=== PATIENT | male | born 1995 | race Hispanic/Latino ===

== ENCOUNTER 2016-09-10 02:56 | Emergency (ER) | payer SELFPAY ==
--- NOTE | 2016-09-10 03:53 | ED.PDOC ---
History of Present Illness - General Chief Complaint: Cardiovascular Problem Stated Complaint: heart palpitations, twitches in chest Time Seen by Provider: 09/10/16 03:30 Source: patient Exam Limitations: no limitations - History of Present Illness Initial Comments: Patient presents with palpitations and generalized pain. The palpatations have occurred before and in fact have been going on for some time ( months). He had a similar workup one year ago that did not show any cardiac problems. He says that once he starts having palpitations he starts thinking about them and worrying about them and then they get worse. He thinks there might be an anxiety component. He says that he has tingling pain all over his body especially the legs and neck. He denies chest pain nor shortness of breath. 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 No diaphoresis. No first degree family members with cardiac problems. No other complaints. Timing/Duration: changing over time Severity: mild Improving Factors: nothing Worsening Factors: nothing Associated Symptoms: denies symptoms Allergies/Adverse Reactions: Allergies NO KNOWN ALLERGY Allergy (Verified 09/10/16 03:09) Review of Systems - Review of Systems Constitutional: States: no symptoms reported EENTM: States: no symptoms reported Respiratory: States: no symptoms reported Cardiology: States: see HPI Gastrointestinal/Abdominal: States: no symptoms reported Genitourinary: States: no symptoms reported Musculoskeletal: States: no symptoms reported Skin: States: no symptoms reported Neurological: States: see HPI Endocrine: States: no symptoms reported Hematologic/Lymphatic: States: no symptoms reported Past Medical History (General) - Patient Medical History Hx Seizures: No Hx Stroke: No Hx Dementia: No Hx Asthma: No Hx of COPD: No Hx Cardiac Disorders: No Hx Congestive Heart Failure: No Hx Pacemaker: No Hx Hypertension: No Hx Thyroid Disease: No Hx Diabetes: No Hx Gastroesophageal Reflux: No Hx Renal Disease: No Hx Cancer: No Hx of HIV: No Hx Hepatitis C: No Hx MRSA: No - Vaccination History Hx Tetanus, Diphtheria Vaccination: Yes Hx Influenza Vaccination: No Hx Pneumococcal Vaccination: No - Social History Hx Tobacco Use: No Hx Chewing Tobacco Use: No Hx Alcohol Use: Yes - occ Hx Physical Abuse: No Hx Emotional Abuse: No Hx Suspected Abuse: No - Female History Patient : No Family Medical History - Family History Mother Family History: Unknown Hx Cardiac Disease: Yes Physical Exam - Physical Exam General Appearance: Alert Respiratory: lungs clear Cardiovascular/Chest: normal peripheral pulses, regular rate, rhythm Gastrointestinal/Abdominal: normal bowel sounds, non tender, soft Extremity: non-tender, normal inspection, no pedal edema 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 No LBBB. Departure - Departure Clinical Impression: Palpitations Disposition: Discharge to Home or Self Care Condition: Good Departure Forms: ED Discharge - Pt. Copy, Patient Portal Self Enrollment Instructions: DI for Palpitations Diet: resume usual diet Activity: increase activity as tolerated Additional Instructions: Follow up with a primary physician. Clinics available in town: [facility] [phone] [facility] [phone], they also take walk-ins on Wednesdays [facility] [phone] [facility] [phone] Also get a referral to a acid tank cleaner and neurologist Dr. Sawant, Field Support Representative, is from [place], he comes to [place] once a month [phone] Dr. Arzola, Neurologist, also from [place] [phone]
[2016-09-10 04:08] VITALS: BP 131/72; TEMP 97.2; O2SAT 96
== END 2016-09-10 04:10 | disposition home or self-care (01) ==
LOC: ER 02:56
DX: R00.2 Palpitations (principal); Z82.49 Family history of ischemic heart disease and other diseases of the circulatory system

== ENCOUNTER → 2016-09-16 | Outpatient (CLI) | payer SELFPAY | END | disposition home or self-care (01) | LOC: LAB.O 09:35 | PROVIDERS: ATTEND Family Medicine | DX: R29.898 Other symptoms and signs involving the musculoskeletal system (principal) ==

== ENCOUNTER 2016-10-21 17:02 | Emergency (ER) | payer SELFPAY ==
[2016-10-21 17:17] VITALS: TEMP 99.2
[2016-10-21] MEDS ORDERED: SODIUM CHLORIDE 0.9% 1000ML 1,000 ML IVS ONE (17:27)
[2016-10-21] MEDS ORDERED: ONDANSETRON ODT 8 MG TAB SL ONE (17:27)
--- NOTE | 2016-10-21 18:25 | ED.PDOC ---
History of Present Illness - General Chief Complaint: GI Problem Stated Complaint: light headed, feels dehydrated Time Seen by Provider: 10/21/16 17:02 Source: patient Exam Limitations: no limitations - History of Present Illness Initial Comments: The patient is a 21-year-old male presenting to the emergency room secondary tomild intestinal upset starting this morning. He threw up 2 times. No blood noted by. No real abdominal pain. No fevers. Poor appetite today. No sore throat. No runny nose. No headache. Just some mild stomach upset. Severity: mild Improving Factors: nothing Worsening Factors: eating Associated Symptoms: loss of appetite, malaise, nausea/vomiting Allergies/Adverse Reactions: Allergies NO KNOWN ALLERGY Allergy (Verified 10/21/16 17:16) Home Medications: Ambulatory Orders Famotidine 20 mg PO DAILY #30 tab 10/21/16 Ondansetron [Zofran Odt] 4 mg PO Q4H PRN #10 tab 10/21/16 Review of Systems - Review of Systems Constitutional: States: malaise EENTM: States: no symptoms reported Respiratory: States: no symptoms reported Cardiology: States: no symptoms reported Gastrointestinal/Abdominal: States: nausea, vomiting. Denies: constipation, diarrhea Genitourinary: States: no symptoms reported Musculoskeletal: States: no symptoms reported Skin: States: no symptoms reported Neurological: States: other - very mild dizziness Endocrine: States: no symptoms reported - except for a dry mouth All other Systems: No Change from Baseline Past Medical History (General) - Patient Medical History Hx Seizures: No Hx Stroke: No Hx Dementia: No Hx Asthma: No Hx of COPD: No Hx Cardiac Disorders: No Hx Congestive Heart Failure: No Hx Pacemaker: No Hx Hypertension: No Hx Thyroid Disease: No Hx Diabetes: No Hx Gastroesophageal Reflux: No Hx Renal Disease: No Hx Cancer: No Hx of HIV: No Hx Hepatitis C: No Hx MRSA: No Surgical History: other - Vaccination History Hx Tetanus, Diphtheria Vaccination: Yes Hx Influenza Vaccination: No Hx Pneumococcal Vaccination: No Immunizations Up to Date: Yes - Social History Hx Tobacco Use: No Hx Chewing Tobacco Use: No Hx Alcohol Use: Yes - occ Hx Substance Use: No Hx Substance Use Treatment: No Hx Depression: No Hx Physical Abuse: No Hx Emotional Abuse: No Hx Suspected Abuse: No - Activities of Daily Living Hospice Agency (if applicable):: None - Female History Patient is a Female of Child Bearing Age (10 -59 yrs old): No Patient : No Family Medical History - Family History Mother Family History: Unknown Hx Cardiac Disease: Yes Physical Exam - Physical Exam General Appearance: Alert, Comfortable, No apparent distress Eye Exam: bilateral normal Ears, Nose, Throat: hearing grossly normal, normal ENT inspection, normal pharynx Neck: non-tender, full range of motion, supple Respiratory: chest non-tender, lungs clear, normal breath sounds, no respiratory distress, no accessory muscle use Cardiovascular/Chest: normal peripheral pulses, regular rate, rhythm, no edema Peripheral Pulses: radial,right: 2+, radial,left: 2+, dorsalis pedis,right: 2+, dorsalis pedis,left: 2+ Gastrointestinal/Abdominal: normal bowel sounds, non tender, soft, no pulsatile mass Rectal Exam: deferred Back Exam: normal inspection, no CVA tenderness, no vertebral tenderness Extremity: normal range of motion, non-tender, normal inspection, no pedal edema , normal capillary refill 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 He has received a liter of IV fluids and a dose of Zofran. He will be written for a prescription for Zofran in order to be able to keep himself hydrated. ER warnings were given for any significant worsening. If the patient is still having some symptoms by Wednesday then he should follow-up with his primary care doctor. - Results/Orders Results/Orders: Laboratory Tests 10/21/16 10/21/16 17:27 17:35 WBC 9.5 RBC 5.61 Hgb 16.5 Hct 48.3 MCV 86.1 MCH 29.5 MCHC 34.3 RDW 13.4 Plt Count 208 MPV 7.8 Absolute Neuts (auto) 7.90 H Absolute Lymphs (auto) 1.20 Absolute Monos (auto) 0.40 Absolute Eos (auto) 0.00 Absolute Basos (auto) 0.00 Neutrophils % 82.5 H Lymphocytes % 13.0 L Monocytes % 4.0 Eosinophils % 0.1 L Basophils % 0.4 Sodium 139 Potassium 4.1 Chloride 105 Carbon Dioxide 26 Anion Gap 12.1 BUN 11 Creatinine 0.98 BUN/Creatinine Ratio 11.2 Random Glucose 99 Serum Osmolality 277.0 Calcium 8.9 Total Bilirubin 0.7 AST 22 ALT 24 Alkaline Phosphatase 51 L Serum Total Protein 7.4 Albumin 5.2 Globulin 2.2 L Albumin/Globulin Ratio 2.4 H Departure - Departure Clinical Impression: Gastroenteritis Disposition: Discharge to Home or Self Care Condition: Fair Departure Forms: ED Discharge - Pt. Copy, Patient Portal Self Enrollment Instructions: DI for Viral Gastroenteritis -- Adult Diet: bland diet Activity: increase activity as tolerated Referrals: Slim Arias MD [Primary Care Provider] - 1-5 Days Prescriptions: Famotidine 20 mg PO DAILY #30 tab Ondansetron [Zofran Odt] 4 mg PO Q4H PRN #10 tab PRN Reason: Vomiting Home Medications: Ambulatory Orders Famotidine 20 mg PO DAILY #30 tab 10/21/16 Ondansetron [Zofran Odt] 4 mg PO Q4H PRN #10 tab 10/21/16 Additional Instructions: the patient is a 21-year-old male presenting to the emergency room secondary to what appears to be a mild gastroenteritis. He has received a liter of IV fluids and a dose of Zofran. He will be written for a prescription for Zofran in order to be able to keep himself hydrated. ER warnings were given for any significant worsening. If the patient is still having some symptoms by Wednesday then he should follow-up with his primary care doctor.
[2016-10-21 18:49] VITALS: BP 139/61; O2SAT 98
== END 2016-10-21 18:49 | disposition home or self-care (01) ==
LOC: ER 17:02
DX: K52.9 Noninfective gastroenteritis and colitis, unspecified (principal)
CPT/HCPCS: 80053; 85025; J7030

== ENCOUNTER 2017-02-21 15:33 | Emergency (ER) | payer SELFPAY ==
[2017-02-21 15:48] VITALS: TEMP 98
[2017-02-21] MEDS ORDERED: ALPRAZolam 0.25 MG TAB PO ONE (15:54)
[2017-02-21] MEDS ORDERED: ASPIRIN (CHEWABLE) 81 MG TAB PO ONE (15:54)
--- NOTE | 2017-02-21 15:57 | ED.PDOC ---
History of Present Illness - General Chief Complaint: Cardiovascular Problem Stated Complaint: chest pain and anxiety Time Seen by Provider: 02/21/17 15:42 Source: patient, RN notes reviewed, Vital Signs reviewed, old records Exam Limitations: no limitations - History of Present Illness Initial Comments: Patient comes in with c/o of chest pain that started ~20 minutes ago. Pain is along the L side of his sternum and is sharp in nature. No SOB, diaphoresis or nausea. Very anxious. Reports he has had these pains before but have never lasted this long. 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 He has been here several times with palpitations and anxiety. Timing/Duration: 1/2 hour Severity/Quality: mild, sharp Location: substernal Chest Pain Radiation: no radiation Activities at Onset: other - @ work Prior Chest Pain/Cardiac Workup: non-cardiac Improving Factors: nothing Worsening Factors: nothing Nitro Today/Relief: no nitro taken today Aspirin Treatment Today: 81 mg x 4, provided by ED Associated Symptoms: denies symptoms Allergies/Adverse Reactions: Allergies NO KNOWN ALLERGY Allergy (Verified 02/21/17 15:48) Home Medications: Ambulatory Orders Famotidine 20 mg PO DAILY #30 tab 10/21/16 Ondansetron [Zofran Odt] 4 mg PO Q4H PRN #10 tab 10/21/16 Review of Systems - Review of Systems Constitutional: States: no symptoms reported Respiratory: States: no symptoms reported. Denies: short of breath Cardiology: States: see HPI, chest pain. Denies: palpitations, syncope Gastrointestinal/Abdominal: States: no symptoms reported Musculoskeletal: States: no symptoms reported Skin: States: no symptoms reported Neurological: States: see HPI, anxiety All other Systems: No Change from Baseline Past Medical History (General) - Patient Medical History Hx Seizures: No Hx Stroke: No Hx Dementia: No Hx Asthma: No Hx of COPD: No Hx Cardiac Disorders: No Hx Congestive Heart Failure: No Hx Pacemaker: No Hx Hypertension: No Hx Thyroid Disease: No Hx Diabetes: No Hx Gastroesophageal Reflux: No Hx Renal Disease: No Hx Cancer: No Hx of HIV: No Hx Hepatitis C: No Hx MRSA: No Surgical History: no surgical history - Vaccination History Hx Tetanus, Diphtheria Vaccination: Yes Hx Influenza Vaccination: No Hx Pneumococcal Vaccination: No - Social History Hx Tobacco Use: No Hx Chewing Tobacco Use: No Hx Alcohol Use: Yes - occ Hx Substance Use: No Hx Substance Use Treatment: No Hx Depression: No Hx Physical Abuse: No Hx Emotional Abuse: No Hx Suspected Abuse: No - Female History Patient : No Family Medical History - Family History Mother Family History: Unknown Hx Cardiac Disease: Yes Physical Exam - Physical Exam General Appearance: Anxious, No apparent distress, Well Developed, Well Groomed , Well Hydrated, Well Nourished Neck: full range of motion, supple, normal inspection Respiratory: chest non-tender, lungs clear, normal breath sounds, no respiratory distress, no accessory muscle use Cardiovascular/Chest: normal peripheral pulses, regular rate, rhythm, no gallop , no murmur Peripheral Pulses: radial,right: 2+, radial,left: 2+, posterior tibialis,right: 2+, posterior tibialis,left: 2+ Extremity: normal range of motion, non-tender, normal inspection Neurologic: no motor/sensory deficits, alert, normal mood/affect Skin Exam: normal color, warm/dry Comments: Vital Signs 02/21/17 02/21/17 15:36 15:49 Temperature 98.0 F Pulse Rate [ 88 77 pulse ox] Respiratory 20 Rate Blood Pressure 145/78 [Left Arm] O2 Sat by Pulse 97 Oximetry Progress - Progress Progress: 02/21/17 17:22 Patient reports he is feeling better. Discussed chest pain and anxiety. The 5 days of the week that he does crossfit he does not get anxiety or chest pain. Those symptoms tend to occur on the days he does not exercise. Discussed yoga and meditation. Also discussed seeing his PCP, Dr. Arias, and discussing treatment for his anxiety. Benign work up. - Results/Orders Results/Orders: Laboratory Tests 02/21/17 02/21/17 16:08 16:08 WBC 5.4 RBC 5.32 Hgb 15.9 Hct 45.6 MCV 85.8 MCH 29.9 MCHC 34.8 RDW 13.3 Plt Count 227 MPV 7.6 Absolute Neuts (auto) 3.50 Absolute Lymphs (auto) 1.40 Absolute Monos (auto) 0.40 Absolute Eos (auto) 0.00 Absolute Basos (auto) 0.00 Neutrophils % 65.4 Lymphocytes % 26.6 Monocytes % 7.4 Eosinophils % 0.3 L Basophils % 0.3 Sodium 139 Potassium 4.1 Chloride 104 Carbon Dioxide 27 Anion Gap 12.1 BUN 10 Creatinine 0.99 BUN/Creatinine Ratio 10.1 Random Glucose 109 H Serum Osmolality 277.2 Calcium 9.4 Total Bilirubin 1.1 H AST 19 ALT 21 Alkaline Phosphatase 53 L Creatine Kinase 121 CK-MB (CK-2) 1.8 CK-MB (CK-2) % Not Reportable Troponin I < 0.02 Serum Total Protein 7.6 Albumin 5.3 Globulin 2.3 Albumin/Globulin Ratio 2.3 H - EKG/XRAY/CT EKG: Sinus, no ST T wave changes, Unchanged from - 09/10/16 Comments: Rate 89bpm XRAY: chest - Normal per Rad Departure - Departure Clinical Impression: Atypical chest pain, Generalized anxiety disorder Time of Disposition: 17:25 Disposition: Discharge to Home or Self Care Condition: Good Departure Forms: ED Discharge - Pt. Copy, Patient Portal Self Enrollment Instructions: DI for Atypical Chest Pain, DI for Anxiety -- Adult Diet: resume usual diet Activity: increase activity as tolerated Referrals: Slim Arias MD [Primary Care Provider] - 1-2 Weeks Home Medications: Ambulatory Orders Famotidine 20 mg PO DAILY #30 tab 10/21/16 Ondansetron [Zofran Odt] 4 mg PO Q4H PRN #10 tab 10/21/16 Additional Instructions: Try doing Yoga on weekends
[2017-02-21 17:09] VITALS: BP 131/79
--- NOTE | 2017-02-21 17:20 | RAD ---
EXAM: Chest,1 View CLINICAL INDICATION: 21-year-old male with chest pain. TECHNIQUE: Single view, AP portable chest was obtained. COMPARISON: 06/24/2015. FINDINGS: Stable cardiac and mediastinal silhouette. Heart size is normal. Lungs are clear without focal opacity, pneumothorax or pleural effusions. The visualized bones are within normal limits. IMPRESSION: No acute cardiopulmonary abnormalities. Electronically signed by: Aiyana Acevedo MD 02/21/2017 5:19 PM CDT Workstation: [id number]
[2017-02-21 17:47] VITALS: O2SAT 97
== END 2017-02-21 17:30 | disposition home or self-care (01) ==
LOC: ER 15:33
DX: R07.89 Other chest pain (principal); F41.1 Generalized anxiety disorder